=== PATIENT | female | born 1945 | race Two or more races ===

== ENCOUNTER 2017-12-10 10:31 | Outpatient (CLI) | payer OTHER ==
[~2017-12-10 10:31] MED LIST: ASA81 MG PO
== END 2017-12-10 10:43 | disposition home or self-care (01) ==
LOC: NUCLEAR 10:31
DX: I20.1 Angina pectoris with documented spasm (principal)
CPT/HCPCS: 78452; 93017; J0153; A9500

== ENCOUNTER 2017-12-19 21:40 | Emergency (ER) | payer OTHER ==
[~2017-12-19] VITALS: Ht 149.9 cm; Wt 54.4 kg
[2017-12-19] MEDS ORDERED: TIROSINT50 MCG (22:08)
[2017-12-19] MEDS ORDERED: TOPROL XL50 M1 (22:08)
[2017-12-19] MEDS ORDERED: PNEU16DI2 ×3 (22:08→22:10)
[2017-12-19] MEDS ORDERED: ENALAPRIL MALEA10 MG (22:09)
[2017-12-19] MEDS ORDERED: CLOPIDOGREL BIS75 MG (22:09)
[2017-12-19] MEDS ORDERED: NITROGLYCERIN0.4 MG (22:10)
[2017-12-20] MEDS ORDERED: AIRBORNE EFFER1 EACH PO (01:50)
[2017-12-20] MEDS ORDERED: CELEBREX100 MG PO (01:50)
[2017-12-20] MEDS ORDERED: BUDESONIDE0.5 MG/2 M IH (01:54)
[2017-12-20] MEDS ORDERED: TESSALON PERLE100 MG PO (01:54)
[2017-12-20] MEDS ORDERED: MUCINEX DM ER1 EAC1 PO (01:54)
[2017-12-20] MEDS ORDERED: LEVALBUTER1.25 MG/3 IH (01:54)
== END 2017-12-20 02:00 ==
LOC: ER 21:40
DX: J06.9 Acute upper respiratory infection, unspecified (principal); B34.9 Viral infection, unspecified

== ENCOUNTER → 2018-06-18 | Outpatient (CLI) | payer OTHER ==
[~2018-06-18] MED LIST changes: +AIRBORNE EFFER1 EACH PO; +BUDESONIDE0.5 MG/2 M IH; +CELEBREX100 MG PO; +CLOPIDOGREL BIS75 MG; +ENALAPRIL MALEA10 MG; +LEVALBUTER1.25 MG/3 IH; +MUCINEX DM ER1 EAC1 PO; +NITROGLYCERIN0.4 MG; +PNEU16DI2; +TESSALON PERLE100 MG PO; +TIROSINT50 MCG; +TOPROL XL50 M1
== END | disposition home or self-care (01) ==
LOC: SONOGRAMA 10:42
DX: E04.8 Other specified nontoxic goiter (principal)

== ENCOUNTER → 2018-07-08 | Outpatient (CLI) | payer OTHER | END | disposition home or self-care (01) | LOC: NUCLEAR 09:41 | DX: M81.0 Age-related osteoporosis without current pathological fracture (principal) ==

== ENCOUNTER 2018-08-11 08:37 | Outpatient (CLI) | payer OTHER | END 2018-08-11 08:52 | disposition home or self-care (01) | LOC: RAD 08:37 | DX: I10 Essential (primary) hypertension (principal); I15.8 Other secondary hypertension ==

== ENCOUNTER 2018-09-29 07:15 | Outpatient (CLI) | payer OTHER | END 2018-09-29 07:26 | disposition home or self-care (01) | LOC: SONOGRAMA 07:15 → MAMO-SONO 08:45 | DX: R10.0 Acute abdomen (principal) ==

== ENCOUNTER → 2020-02-24 07:41 | Outpatient (CLI) | payer OTHER | END | disposition home or self-care (01) | LOC: LAB 07:41 | PROVIDERS: ATTEND Specialist | DX: E03.8 Other specified hypothyroidism (principal); Z76.0 Encounter for issue of repeat prescription; E78.49 Other hyperlipidemia; I10 Essential (primary) hypertension ==

== ENCOUNTER 2020-02-24 08:34 | Outpatient (CLI) | payer OTHER | END 2020-02-24 09:00 | disposition HB | LOC: MAMO-SONO 08:34 | DX: Z12.31 Encounter for screening mammogram for malignant neoplasm of breast (principal); I10 Essential (primary) hypertension; E03.8 Other specified hypothyroidism; E78.49 Other hyperlipidemia; Z76.0 Encounter for issue of repeat prescription ==

== ENCOUNTER 2020-08-10 07:22 | Outpatient (CLI) | payer OTHER | END 2020-08-10 07:23 | disposition home or self-care (01) | LOC: LAB 07:22 | PROVIDERS: ATTEND Specialist | DX: R10.11 Right upper quadrant pain (principal); E03.8 Other specified hypothyroidism; I10 Essential (primary) hypertension; I25.10 Atherosclerotic heart disease of native coronary artery without angina pectoris ==

== ENCOUNTER 2020-08-10 08:26 | Outpatient (CLI) | payer OTHER | END 2020-08-10 08:31 | disposition home or self-care (01) | LOC: SONOGRAMA 08:26 | PROVIDERS: ATTEND Specialist | DX: R10.11 Right upper quadrant pain (principal) ==

== ENCOUNTER 2020-09-03 07:54 | Outpatient (CLI) | payer OTHER | END 2020-09-03 08:00 | disposition home or self-care (01) | LOC: NUCLEAR 07:54 | PROVIDERS: ATTEND Specialist | DX: R10.11 Right upper quadrant pain (principal) | CPT/HCPCS: 78227; A9537; J2805 ==

== ENCOUNTER 2021-06-10 07:43 | Outpatient (CLI) | payer OTHER | END 2021-06-10 07:49 | disposition home or self-care (01) | LOC: SONOGRAMA 07:43 | PROVIDERS: ATTEND Specialist | DX: R80.9 Proteinuria, unspecified (principal) ==

== ENCOUNTER 2022-06-16 07:02 | Outpatient (CLI) | payer OTHER | END 2022-06-16 07:04 | disposition home or self-care (01) | LOC: LAB 07:02 | PROVIDERS: ATTEND Anesthesiology Pain Medicine | DX: R79.1 Abnormal coagulation profile (principal) ==

== ENCOUNTER 2022-06-16 08:25 | Outpatient (CLI) | payer OTHER | END 2022-06-16 08:35 | disposition home or self-care (01) | LOC: MRI 08:25 | PROVIDERS: ATTEND Anesthesiology Pain Medicine | DX: M54.59 Other low back pain (principal); M47.896 Other spondylosis, lumbar region | CPT/HCPCS: 72148 ==

== ENCOUNTER 2022-07-14 07:10 | Outpatient (CLI) | payer OTHER | END 2022-07-14 07:23 | disposition home or self-care (01) | LOC: MAMO-SONO 07:10 | PROVIDERS: ATTEND Specialist | DX: Z12.31 Encounter for screening mammogram for malignant neoplasm of breast (principal) ==

== ENCOUNTER 2022-07-22 16:57 | Emergency (ER) | payer OTHER ==
[~2022-07-22] VITALS: Ht 149.9 cm; Wt 49.0 kg
== END 2022-07-22 20:45 | disposition home or self-care (01) ==
LOC: ER 16:57
DX: M79.604 Pain in right leg (principal); I10 Essential (primary) hypertension

== ENCOUNTER 2022-08-25 08:53 | Outpatient (CLI) | payer OTHER | END 2022-08-25 08:56 | disposition home or self-care (01) | LOC: NUCLEAR 08:53 | PROVIDERS: ATTEND General Practice | DX: I82.403 Acute embolism and thrombosis of unspecified deep veins of lower extremity, bilateral (principal); M79.669 Pain in unspecified lower leg ==

== ENCOUNTER 2022-10-11 12:42 | Emergency (ER) | payer OTHER ==
[~2022-10-11] VITALS: Ht 149.9 cm; Wt 47.6 kg
== END 2022-10-11 15:02 | disposition home or self-care (01) ==
LOC: ER 12:42
DX: L02.416 Cutaneous abscess of left lower limb (principal); I10 Essential (primary) hypertension; E05.80 Other thyrotoxicosis without thyrotoxic crisis or storm

== ENCOUNTER 2023-02-20 07:37 | Outpatient (CLI) | payer OTHER ==
[2023-02-20 09:06] LABS: HEMATOCRIT 37.4 % (36.0-45.00); HEMOGLOBIN 12.7 g/dL (12.0-15.00); MEAN CELL VOLUME 88.1 fL (80.00-100.00); MEAN CORPUSCULAR HEMOGLOBIN 30.1 pg (27.00-32.0); MEAN CORPUSCULAR HGB CONC 34.1 g/dl (32.0-36.0); PLATELET COUNT 292 K/uL (150-450); RED BLOOD COUNT 4.24 M/uL (4.00-6.00); RED CELL DISTRIBUTION WIDTH 14.3 % (11.5-14.5)
[2023-02-20 09:22] LABS: URINE APPEARANCE Clear; URINE BILIRRUBIN Negative (NEGATIVE); URINE BLOOD Trace; URINE COLOR Yellow; URINE GLUCOSE Negative (NEGATIVE); URINE LEUKOCYTE Small; URINE NITRATE Negative; URINE PROTEIN Negative (NEGATIVE)
[2023-02-20 09:27] LABS: URINE BACTERIA 35.2 uL (0.0-1933); URINE EPITHELIAL CELLS 14.8 uL (0.0-38.8); URINE RBC 20.9 uL (0.0-20.8); URINE WBC 20.6 uL (0.0-23.2)
[2023-02-20 10:11] LABS: ALBUMIN 3.9 gm/dL (3.4-5.0); BILIRUBIN TOTAL 0.38 mg/dL (0.3-1.2); CALCIUM 9.3 mg/dL (8.5-10.1); CHOL HDL RATIO 3.8 (0-5.0); CREATININE SERUM 0.91 mg/dL (0.55-1.02); GFR 60.1; GLOBULINA 3.7 G/DL (2.4-3.5); POTASSIUM 4.57 mEq/L (3.5-5.1); TOTAL PROTEIN 7.6 gm/dL (6.4-8.2)
[2023-02-20 10:18] LABS: TSH 5.58 uIU/mL (0.358-3.74)
== END 2023-02-20 07:38 | disposition home or self-care (01) ==
LOC: LAB 07:37
PROVIDERS: ATTEND Specialist
DX: M54.9 Dorsalgia, unspecified (principal); I25.10 Atherosclerotic heart disease of native coronary artery without angina pectoris; E78.5 Hyperlipidemia, unspecified

== ENCOUNTER 2023-02-20 08:26 | Outpatient (CLI) | payer OTHER | END 2023-02-20 09:01 | disposition home or self-care (01) | LOC: RAD 08:26 | PROVIDERS: ATTEND Specialist | DX: M54.9 Dorsalgia, unspecified (principal); I25.10 Atherosclerotic heart disease of native coronary artery without angina pectoris; E78.5 Hyperlipidemia, unspecified ==

== ENCOUNTER 2023-09-10 07:48 | Outpatient (CLI) | payer OTHER | END 2023-09-10 07:58 | disposition home or self-care (01) | LOC: MAMO-SONO 07:48 | PROVIDERS: ATTEND General Practice | DX: Z12.31 Encounter for screening mammogram for malignant neoplasm of breast (principal); Z12.39 Encounter for other screening for malignant neoplasm of breast ==

== ENCOUNTER 2024-04-12 12:31 | Outpatient (CLI) | payer OTHER | END 2024-04-12 12:42 | disposition home or self-care (01) | LOC: RAD 12:31 | PROVIDERS: ATTEND General Practice | DX: M79.662 Pain in left lower leg (principal) ==